=== PATIENT | female | born 1960 | race Caucasian/White ===

== ENCOUNTER 2018-04-18 05:46 | Inpatient (IN) ==
[2018-04-18] MEDS ORDERED: ceFAZolin 2 GM Premix Inj 2 GM/50 ML PIGGYBACK IV.SIG ONE (06:39)
[2018-04-18] MEDS ORDERED: Metoprolol Tartrate 25 MG Tablet PO ONE (06:45)
[2018-04-18] MEDS ORDERED: Sodium Chlor 0.9% Inj 500 ML IV.CONT ONE (06:45)
[2018-04-18] MEDS ORDERED: Chlorhexidine Gluconate 2% 1 Pack (2 Cloths) TOPICAL ONE (06:45)
[2018-04-18] MEDS ORDERED: ceFAZolin 2 GM Premix Inj 2 GM/50 ML PIGGYBACK IV.SIG SCH (07:00)
[2018-04-18] MEDS ORDERED: Bupivacaine/Epinephrine Inj 0.25% 50 ML Vial ONE (07:01)
[2018-04-18] MEDS ORDERED: Bupivacaine Liposomal PF 1.3% Inj 20 ML Vial ONE (07:02)
[2018-04-18] MEDS ORDERED: Lidocaine PF 1% Inj 5 ML Syringe OTHER ONE (07:30)
[2018-04-18] MEDS ORDERED: Sugammadex Inj 200 MG/2 ML Vial IV.PUSH ONE ×2 (09:11→09:38)
[2018-04-18] MEDS ORDERED: fentaNYL Citrate Inj 100 MCG/2 ML Ampul ONE (10:32)
[2018-04-18] MEDS ORDERED: *Meperidine Inj 25 MG/ML Vial PERIprocedural Use ONLY ONE (10:35)
[2018-04-18] MEDS ORDERED: Bisacodyl 10 MG Supp RECTAL PRN (10:35)
[2018-04-18] MEDS ORDERED: *Enalaprilat Inj 1.25 MG/ML Vial IV.PUSH ONE (10:35)
[2018-04-18] MEDS ORDERED: Post-op Orders (for Pharmacy) OTHER ONE (10:35)
[2018-04-18] MEDS ORDERED: Ketorolac Inj 30 MG/ML (IVP) Vial IV.PUSH PRN (10:35)
--- NOTE | 2018-04-18 10:35 | P.OP ---
- Preoperative Diagnosis (1) Ventral incisional hernia (2) Recurrent ventral incisional hernia (3) Umbilical hernia - Postoperative Diagnosis (1) Recurrent ventral incisional hernia (2) Umbilical hernia (3) Ventral incisional hernia Date of procedure: 04/18/18 Procedure: Open repair ventral incisional hernia, recurrent ventral incisional hernia, umbilical and supraumbilical hernias with removal of previously placed intraperitoneal mesh, modified separation of components, placement of retrorectus mesh 9 x 20 cm, Synecor mesh, placement of yoselin dressing Implants: Synecor mesh Anesthesia: ERI Surgeon: Jhony Coles MD Geoscience Professor: ALEXANDRA Broderick Estimated blood loss (mL): 25 Pathology: none sent Operation and Findings: Patient was identified as Shania Vincent, taken to the operating room, and placed in a supine position. Sequential compression device were placed on bilateral lower extremities. Following induction of adequate general endotracheal anesthesia patient's abdomen was prepped and draped in usual sterile fashion with Betadine. Anesthesia had performed a tap block. A timeout procedure was performed. Following completion of the timeout procedure everyone's satisfaction within the room a proposed elliptical incision including her previous upper midline scar was carried out with a scalpel. The skin and subcutaneous fatty tissue was excised using electrocautery. Hemostasis was controlled with electrocautery. Dissection continued posteriorly through generous subcutaneous fatty tissue layer to the midline fascia was identified. Epigastric herniated fatty tissue was identified just superior to the previously placed mesh as well as in a location superior to this. It was from surrounding subcutaneous tissue. Dissection continued posteriorly onto the mesh and the mesh was then from the overlying fascia on both sides. The peritoneal cavity was entered through 1 of the epigastric hernia defect superiorly and using the surgeon's finger as a guide the peritoneum was opened to the length of the skin incision. Omental fatty tissue stuck to the previously placed mesh was carefully dissected free of the previously placed mesh which was removed in its entirety and passed off the field for gross only pathologic evaluation. Inferior dissection continued in a supraumbilical and umbilical hernia defect containing omental tissue was reduced and the hernia sacs excised with electrocautery. Attention was then turned to modified separation of components. On both sides the posterior fashion peritoneum were from the overlying rectus muscle dissecting about 8 cm lateral to the midline on both sides allowing for medialization of the posterior fascia and peritoneum. Care was taken to examine intraperitoneal contents there was no evidence of bleeding or injury to any structures. The omentum was draped over the intestine and the posterior layer was closed with with a running #1 single- stranded PDS suture starting superiorly and inferiorly in time. The retrorectus position was irrigated copiously with saline and hemostasis was assured with electrocautery. Measurement was made and a piece of 15 x 20 cm Gorse and a core mesh was cut to a 10 x 20 cm oval. It was placed in the retrorectus position and held in position with multiple interrupted 2-0 PDS sutures. Sutures were placed at the 12 and 6 o'clock position in the 3 and 9 o' clock position and then to additional sutures were placed between each of the 12 and 3:00 6 and 9:00 9 and 12:00 and then 3:00 positions to provide fixation points for the mesh in the retrorectus position. Irrigation was performed. There was excellent hemostasis. Attention was then turned to mobilization of the anterior fascia from the subcutaneous fatty tissue and this was performed on both sides using electrocautery. This allowed for medialization of the anterior fascia and rectus muscle to the midline. Similarly this was closed with 2 1 single- stranded PDS suture starting at the top and the bottom and meeting in the middle. The subcutaneous space was irrigated. There was excellent hemostasis. The subcutaneous fat was then quilted to the anterior fascia with multiple interrupted 2-0 Vicryl sutures. 2-0 Vicryl was then placed in 2 layers at the midline to close the space. Skin was approximated a running 4-0 Monocryl subcuticular sutures. A 4 x 4's placed within the umbilicus which had been returned to its normal inward projection with 2 2-0 Vicryl sutures. A yoselin dressing was then placed in the standard fashion using Mastisol and the skin. It was connected to suction and there was no evidence of leak. Abdominal binder was placed. The patient tolerated the procedure without apparent complication. Sponge needle and instrument counts were correct at the end of case. The patient was transported to PACU in stable condition.
[2018-04-18] MEDS ORDERED: Ketorolac Inj 30 MG/ML (IVP) Vial ONE (10:47)
[2018-04-18] MEDS: *Labetalol HCl Inj 100 MG/20 ML Vial PERIprocedural Use ONLY IV.PUSH ONE ×2 (10:49→11:17)
[2018-04-18] MEDS ORDERED: *morphine SULFATE 4 MG/ML PERIprocedure ONLY ONE (11:19)
[2018-04-18] MEDS ORDERED: *morphine SULFATE 10 MG/ML PERIprocedure ONLY ONE (11:50)
[2018-04-18] MEDS: Sucralfate 1 GM Tablet PO SCH ×3 (16:32→17:51)
[2018-04-18] MEDS: Montelukast 10 MG Tablet PO SCH ×2 (16:49→17:53)
--- NOTE | 2018-04-18 20:00 | ECG ---
Date Performed: 04/18/2018 Time Performed: 06:42:36 PTAGE: 57 years EKG: Sinus rhythm NORMAL ECG PREVIOUS TRACING : 04/01/1997 15.48 Since the previous tracing, no significant change noted DOCTOR: Ruddy Ocampo Interpretating Date/Time 04/18/2018 19:59:15
[2018-04-18] MEDS ORDERED: amLODIPine 5 MG Tablet PO SCH (21:00)
[2018-04-18] MEDS ORDERED: Triamterene/HCTZ 37.5 MG/25 MG Tablet PO SCH (21:00)
[2018-04-18] MEDS ORDERED: Zolpidem Tartrate 5 MG Tablet PO PRN (21:00)
[2018-04-18] MEDS: Senna/Docusate Sodium 8.6/50 MG Tablet PO SCH (21:08)
[2018-04-19] MEDS: Sucralfate 1 GM Tablet PO SCH ×4 (00:57→18:35)
[2018-04-19 04:01] VITALS: RESP 18
[2018-04-19] MEDS: Senna/Docusate Sodium 8.6/50 MG Tablet PO SCH (08:00)
[2018-04-19] MEDS ORDERED: Enoxaparin Inj 40 MG/0.4 ML Syringe SQ SCH (10:00)
[2018-04-19 16:32] VITALS: BP 155/81; PULSE 75; TEMP 97.2; O2SAT 97
--- NOTE | 2018-04-19 17:02 | P.PNGS ---
Subjective Patient reports: still having pain, tolerating liquids well, tolerating a regular diet, flatus (Patient is sore from surgery as expected. She has been up walking, getting herself to the bathroom without difficulty. She is desirous of discharge. Her daughter is at the bedside.) Physical Exam Vital signs: Vital Signs 04/18/18 17:49 04/18/18 17:50 04/18/18 20:00 Temperature 98.1 F Pulse Rate 76 Respiratory Rate 18 18 18 Blood Pressure 113/60 Pulse Oximetry 92 L 04/19/18 00:00 04/19/18 04:00 04/19/18 08:00 Temperature 98.4 F 97.9 F 97.1 F L Pulse Rate 69 72 74 Respiratory Rate 17 18 18 Blood Pressure 120/82 131/77 121/60 Pulse Oximetry 90 L 93 L 96 04/19/18 12:00 04/19/18 16:00 Temperature 98.1 F 97.2 F L Pulse Rate 69 75 Respiratory Rate 18 18 Blood Pressure 142/81 H 155/81 H Pulse Oximetry 96 97 Intake & Output 04/18/18 04/19/18 04/19/18 18:59 06:59 18:59 Intake Total 1999 / 1999 580 / 580 100 / 100 Output Total 25 / Balance 1974 / 1974 580 / 580 100 / 100 Weight 99.1 kg Intake: IV 100 / 100 100 / 100 100 / 100 Ofirmev Inj 1,000 mg In 100 ml 100 / 100 100 / 100 100 / 100 @ 400 mls/hr IV.SIG Q6H [facility] Rx# :[id number] Oral 500 / 500 480 / 480 Anesthesia Amount 1400 / 1400 Output: Estimated Blood Loss 25 / 25 Other: # Voids 1 2 Date of Last Bowel Movement 04/17/18 Narrative: Abdomen is soft and nondistended. The yoselin dressing is intact. There is minimal spots of dried bloody drainage. There is no erythema of the abdomen. Her extremities are nonedematous. Assessment and Plan - Assessment (1) Ventral incisional hernia Code(s): K43.2 - Incisional hernia without obstruction or gangrene Status: Acute (2) Recurrent ventral incisional hernia Code(s): K43.2 - Incisional hernia without obstruction or gangrene Status: Acute (3) Umbilical hernia Code(s): K42.9 - Umbilical hernia without obstruction or gangrene Status: Acute - Plan Postop day 1 status post open repair ventral incisional hernias, umbilical hernia, supraumbilical hernia with modified separation of components, placement of retrorectus mesh. The patient is doing well. Her PIC O dressing remains intact. She is desirous of discharge. I discussed discharge plans with the patient, her daughter, her bedside nurse. She is to follow-up with me in the office next week. She will given a prescription for pain medication. She is to drink plenty liquids to stay hydrated. She is to use laxatives or stool softeners as needed to avoid constipation. Discussed Condition With: Patient, daughter, bedside RN.
== END 2018-04-19 18:34 | disposition home or self-care (01) ==
LOC: HSDC 05:46 → HSDI 10:45 → N06 14:13
PROVIDERS: ADMIT Surgery Trauma Surgery; ATTEND Surgery Trauma Surgery